=== PATIENT | male | born 1960 | race Caucasian/White ===

== ENCOUNTER 2016-12-31 19:17 | Emergency (ER) | payer SELFPAY ==
[~2016-12-31 19:17] MED LIST: AMOX500T PO; CEPH500C3 PO; SULF-154 PO
[2016-12-31 19:19] VITALS: BP 159/93; PULSE 84; RESP 16; TEMP 98.8; O2SAT 97
== END 2016-12-31 20:06 | disposition left against medical advice (07) ==
LOC: NED 19:17
DX: Z04.9 Encounter for examination and observation for unspecified reason (principal)
CPT/HCPCS: 99281